=== PATIENT | female | born 1975 ===

== ENCOUNTER 2024-08-29 06:38 | Day surgery (SDC) | payer OTHER ==
[~2024-08-29 06:38] MED LIST: GILTUSS TR TAB1 EACH PO; SINGULAIR 10MG10 MG PO; ZITHROMAX200 MG PO; ZYRTEC10 MG PO
[2024-08-29] MEDS ORDERED: DIPHENHYDRAMINE HCL 50 MG/ML VIAL 1ML IV ONE (10:00)
[2024-08-29] MEDS ORDERED: MIDAZOLAM HCL 2 MG/2 ML VIAL IV ONE (10:00)
[2024-08-29] MEDS ORDERED: fentaNYL CITRATE 50 MCG/ML AMPUL IV PUSH ONE (10:00)
== END 2024-08-29 10:50 | disposition home or self-care (01) ==
LOC: AMB-ENDOS 06:38
PROVIDERS: ATTEND Colon & Rectal Surgery
DX: D12.5 Benign neoplasm of sigmoid colon (principal); K63.5 Polyp of colon; K57.30 Diverticulosis of large intestine without perforation or abscess without bleeding; Z91.040 Latex allergy status